=== PATIENT | male | born 1965 | race Caucasian/White ===

== ENCOUNTER 2017-07-27 18:16 | Emergency (ER) | payer SELFPAY ==
[~2017-07-27] VITALS: Ht 172.7 cm; Wt 81.8 kg
[~2017-07-27 18:16] MED LIST: NOCURR
[2017-07-27 18:39] VITALS: BP 127/83
== END 2017-07-28 | disposition left against medical advice (07) ==
LOC: EMS 18:17
DX: Z53.21 Procedure and treatment not carried out due to patient leaving prior to being seen by health care provider (principal)